=== PATIENT | female | born 1935 | race Caucasian/White ===

== ENCOUNTER 2022-08-26 10:52 | Emergency (ER) | payer MEDICARE, SELFPAY ==
[2022-08-26] VITALS (66 sets, daily range): BP systolic 108–204; BP diastolic 63–143; PULSE 97–126; RESP 21–35; TEMP 36.4; O2SAT 87–99
--- NOTE | ~2022-08-26 | CT_ITS ---
EXAMINATION: CTA chest PE protocol DATE: 08/26/2022 12:56 INDICATION: Shortness of breath. TECHNIQUE: Computed tomography angiography (CTA) of the chest was performed with 100 mL Omnipaque-350 intravenous contrast timed to evaluate the pulmonary arteries. Coronal maximum intensity projection 3D-reconstructions were created by the technologist. Automated exposure control and iterative reconst ruction technique were employed. The dose-length product was 477.72 mGy-cm. COMPARISON: None. 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 There is mild bronchiectasis in the inferior lungs with bilateral mucous plugging. There is mild atelectasis bilaterally. No pleural effusion. The heart size is normal. No p ericardial effusion. There is no pulmonary embolus. The thyroid is severely enlarged and extends into the mediastinum. There is a small sliding hiatal hernia. There is moderate thoracic spondylosis. IMPRESSION: 1. No pulmonary embolus. Sensitivity is mildly decreased by motion artifact. 2. Mild bronchiectasis in the inferior lungs with bilateral mucous plugging. 3. Severely enlarged thyroid, which extends into the mediastinum. 4. Small sliding hiatal hernia. Reviewed, dictated and finalized at location A.
--- NOTE | 2022-08-26 11:04 | ED.URI ---
HPI - URI/Sore Throat General Stated Complaint: breathing problems Time Seen by Provider: 08/26/22 11:04 Related Data Allergies Allergy/AdvReac Type Severity Reaction Status Date / Time Penicillins AdvReac Rash Verified 08/21/22 07:42 [facility] Past Medical History Medical History Hypertension Surgical History Surgical History No history of previous surgery Social History Social History Smoking status: Current every day smoker Lack of Transportation: YES Lack of Food: Never True Current Housing: I Have Housing Concerned About Future Housing: No Difficulty Paying Gas/Electric Bills: No Difficulty Paying for Meds: No Currently Unemployed: No Education: Decline to Answer Difficulty w/ Childcare or Family Care: No Course Vital Signs Vital signs: Vital Signs Temperature 36.4 C L 08/26/22 10:52 Pulse Rate 115 H 08/26/22 10:52 Respiratory Rate 35 H 08/26/22 10:52 Blood Pressure 186/87 H 08/26/22 10:52 Pulse Oximetry 94 08/26/22 10:52 Oxygen Delivery Room Air 08/26/22 10:52 Temperature 36.4 C L 08/26/22 10:52 Pulse Rate 115 H 08/26/22 10:52 Respiratory Rate 35 H 08/26/22 10:52 Blood Pressure 186/87 H 08/26/22 10:52 Pulse Oximetry 94 08/26/22 10:52 Oxygen Delivery Room Air 08/26/22 10:52 Discharge Plan Discharge Prescriptions: No Action (DME) Flexichamber Spacer See Rx Instructions .Route Qty: 1 0RF Rx Instructions: As directed fluticasone propion-salmeterol [Advair Diskus] 100-50 mcg/dose blister with device 1 inh inhalation Q12H Qty: 60 0RF benazepril 20 mg tablet 20 mg PO DAILY Qty: 90 0RF furosemide 20 mg tablet 20 mg PO QAM Qty: 90 0RF albuterol sulfate 90 mcg/actuation HFA aerosol inhaler 1 inh inhalation Q4H PRN (Reason: shortness of breath or wheezing) Qty: 8.5 0RF Follow-up/Referrals: Watson Ornelas, [Primary Care Provider] -
--- NOTE | 2022-08-26 11:20 | ECG_ITS ---
Measurements Intervals [place] Rate: 115 P: 77 KS: 160 QRS: 22 QRSD: 90 T: 31 QT: 325 QTc: 451 Interpretive Statements SINUS TACHYCARDIA VENTRICULAR PREMATURE COMPLEXES AND FREQUENT ATRIAL PREMATURE COMPLEXES BASELINE ARTIFACT- II, III, AVF, V4-V6 ABNORMAL ECG NO PREVIOUS ECG AVAILABLE FOR COMPARISON Electronically Signed On 08-26-2022 12:09:40 CDT by Haseeb Yanez D.O.
--- NOTE | 2022-08-26 11:24 | ED.SOB ---
HPI - SOB/Dyspnea General Chief Complaint: Shortness of Breath/Dyspnea Stated Complaint: breathing problems Time Seen by Provider: 08/26/22 11:04 Source: patient Mode of arrival: ambulatory Limitations: no limitations History of Present Illness HPI Narrative: 86-year-old female with COPD( nonsmoker, possibly secondary to secondhand smoke from her ex and children), hypertension presents to the ER with -- worsening shortness of breath for many months which has gotten worse over the past few days. The patient is unable to lay flat. Continuous bilateral wheezing. 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 The mass pushes the trachea anteriorly on the lateral view. MD elicited complaint: shortness of breath and cough Pertinent past history: COPD Onset (ago): day(s) Timing: constant Severity: severe Exacerbating factors: lying flat Relieving factors: nothing Known history of: COPD Associated symptoms: denies other symptoms and orthopnea Treatment prior to arrival: bronchodilator Related Data Home oxygen amount: none Allergies Allergy/AdvReac Type Severity Reaction Status Date / Time Penicillins AdvReac Rash Verified 08/21/22 07:42 Review of Systems Review of Systems: All systems reviewed & are unremarkable except as noted in HPI and below Constitutional: Constitutional: Reports as per HPI and Reports no additional constitutional complaints Eyes: Eyes: Reports as per HPI and Reports no additional eye complaints ENT: Reports system reviewed and no additional complaints, except as documented and Reports as per HPI Cardiovascular: Cardiovascular: Reports as per HPI and Reports no additional cardiovascular complaints Respiratory: Respiratory: Reports as per HPI, Reports no additional respiratory complaints, Reports cough, Reports dyspnea and Reports wheezing Gastrointestinal: Gastrointestinal: Reports as per HPI and Reports no additional gastrointestinal complaints Genitourinary: Genitourinary: Reports no additional female genitourinary complaints and Reports as per HPI Musculoskeletal: Musculoskeletal: Reports no additional musculoskeletal complaints and Reports as per HPI Integumentary/Breasts: Skin/Breast: Reports system reviewed and no additional complaints, except as docu and Reports as per HPI Neurologic: Reports system reviewed and no additional complaints, except as documented and Reports as per HPI Psychiatric: Psychiatric: Reports no additional psychiatric complaints and Reports as per HPI Endocrine: Endocrine: Reports no additional endocrine complaints and Reports as per HPI Hematologic/Lymphatic: Hematologic/Lymphatic: Reports no additional hematologic/lymphatic complaints and Reports as per HPI Allergic/Immunologic: Allergic/Immunologic: Reports no additional allergic/immunologic complaints and Reports as per HPI [facility] Past Medical History Medical History COPD (chronic obstructive pulmonary disease) Hypertension Surgical History Surgical History No history of previous surgery Social History Social History Lack of Transportation: YES Lack of Food: Never True Current Housing: I Have Housing Concerned About Future Housing: No Difficulty Paying Gas/Electric Bills: No Difficulty Paying for Meds: No Currently Unemployed: No Education: Decline to Answer Difficulty w/ Childcare or Family Care: No Exam Const: General: ill appearing Orientation/consciousness: patient oriented x3 Limitations: no limitations HENMT: Head: normal to inspection Ears: external ears normal Face/Nose/Sinus: Normal external nose present Face and sinus: normal facial exam Mouth: Yes Normal o
[2022-08-26 11:42] LABS: Basophils Absolute Auto 0.04 K/mm3 (0.00-0.10); Basophils Percent Auto 0.6 % (0.0-1.0); Eosinophils Absolute Auto 0.26 K/mm3 (0.02-0.50); Eosinophils Percent Auto 3.8 % (1.0-6.0); Hematocrit 39.4 % (35.0-42.0); Hemoglobin 12.7 g/dL (11.7-13.8); Immature Granulocyte Absolute 0.01 K/mm3 (0.00-0.00); Immature Granulocyte Percent A 0.1 % (0.0-0.0); Lymphocytes Absolute Auto 1.15 K/mm3 (1.10-4.50); Lymphocytes Percent Auto 16.7 % (18.0-42.0); Mean Corpuscular HGB Conc 32.2 g/dL (32.0-36.0); Mean Corpuscular Hemoglobin 27.7 pg (27.0-31.0); Mean Corpuscular Volume 85.8 fL (78.0-102.0); Mean Platelet Volume 10.1 fl (9.2-11.8); Monocytes Absolute Auto 0.56 K/mm3 (0.10-0.90); Monocytes Percent Auto 8.1 % (2.0-11.0); Neutrophils Absolute Auto 4.9 K/mm3 (1.7-7.2); Neutrophils Percent Auto 70.7 % (50.0-70.0); Platelet Count Result 208 K/mm3 (150-420); Red Blood Count 4.59 M/mm3 (4.20-5.40); Red Cell Distribution Width 14.1 % (11.6-14.4); White Blood Count 6.9 K/mm3 (4.8-10.8)
[2022-08-26 11:43] LABS: Base Excess ABG -3.9 mmol/L (0-2); HCO3 ABG 20.8 mmol/L (23-29); Oxygen Content ABG 17.5 %vol (16.0-22.0); Oxygen Saturation ABG 92.6 % (95-97); Oxyhemoglobin 91.8 % (94-100); PCO2 ABG 36.5 mmHg (35-45); PO2 ABG 61.9 mmHg (75-85); Total Hemoglobin 13.6 g/dL (12.0-18.0); pH ABG 7.37 (7.35-7.45)
[2022-08-26 11:44] LABS: Device ROOM AIR; Modified Allen's Test Pass; Site Drawn RIGHT RADIAL
[2022-08-26 11:58] LABS: Partial Thromboplastin Time 28.7 SEC (23.90-30.70); Prothrombin Time 10.5 Seconds (9.50-12.10)
[2022-08-26 12:00] LABS: D Dimer 0.79 mg/L (0.19-0.50)
[2022-08-26 12:08] LABS: Alanine Aminotransferase 24 U/L (14-59); Albumin Level 3.6 g/dL (3.4-5.0); Alkaline Phosphatase 142 U/L (46-116); Anion Gap 10 mmol/L (8-16); Aspartate Amino Transferase 17 U/L (15-37); Bilirubin,Total 0.4 mg/dL (0.00-1.00); Blood Urea Nitrogen 22 mg/dL (7-18); Calcium 8.9 mg/dL (8.5-10.1); Carbon Dioxide 25 mmol/L (21-32); Chloride 104 mmol/L (98-108); Estimated CRCL calculation 30 ml/min; Estimated Glomerular Filt Rate 46; Glucose 189 mg/dL (70-99); NT Pro B Type Natriuretic Pept 97 pg/mL (0-450); Osmolality Calculated 296 mOsm/kg (285-295); Potassium 3.6 mmol/L (3.5-5.1); Sodium 139 mmol/L (136-145); Total Protein 7.6 g/dL (6.4-8.2)
[2022-08-26 12:09] LABS: Troponin I 9.2 ng/L (0.00-60.4)
[2022-08-26 12:10] LABS: Lactic Acid Reflex 1.5 mmol/L (0.4-2.0)
[2022-08-26 12:12] LABS: Influenza A QL RT-PCR Negative (Negative); Influenza B QL RT-PCR Negative (Negative); SARS-CoV-2 RNA PCR Negative (Negative)
[2022-08-26 12:13] LABS: RSV RNA, RT-PCR Negative (Negative)
--- NOTE | 2022-08-26 12:22 | PC.NURSE ---
PT REQUESTS WATER, ERP DECLINED AT THIS TIME. PT IS TO HAVE CT. PT IS RESTLESS I AM GONNA . FAN PROVIDED. PT REPORTS THE FAN HELPS. PT IS AWAITING CT AT THIS TIME. WILL CONTINUE TO MONITOR. AT BEDSIDE.
[2022-08-26] MEDS: LACTATED RINGERS 500 ML 999 ML IV CONT (12:29)
--- NOTE | 2022-08-26 12:33 | PC.NURSE ---
PT IS BECOMING AGITATED, RESTLESS. OXYGEN APPLIED AT 2L PER NC ORDERED PER DR GIORDANO. IVF INFUSING ORDERED WITHOUT DIFFICULTY. WILL CONTINUE TO MONITOR.
--- NOTE | 2022-08-26 13:44 | PC.NURSE ---
RADIOLOGY HAS PUSHED FILMS TO [facility].
--- NOTE | 2022-08-26 14:13 | PC.NURSE ---
PT ASSISTED TO BEDSIDE COMMODE. PT DESAT'S TO 88% ON RA. PT INCREASED SOB WITH EXERTION NOTED. PT REMOVED FROM O2 PER ERP. AWAITING RETURN CALL FROM [facility] ACCESS LINE AT THIS TIME. WILL CONTINUE TO MONITOR.
--- NOTE | 2022-08-26 15:11 | PC.NURSE ---
PT IS SITTING UP IN RECLINER FOR COMFORT AT THIS TIME. PT IS AWAITING RETURN CALL FROM [facility]. PT DENIES ANY NEEDS OR COMPLAINTS. WILL CONTINUE TO MONITOR.
--- NOTE | 2022-08-26 16:07 | PC.NURSE ---
HAS RETURNED TO EXAM ROOM. PT IS AWAITING ACCEPTANCE AT A FACILITY FOR TRANSFER AT THIS TIME. DECLINES TRANSFER TO [facility]. ANOTHER CALL PLACED TO [facility] ACCESS LINE, AND CALL PLACED TO [facility] ACCESS LINE. NO CHANGE IN PT STATUS. WILL CONTINUE TO MONITOR.
--- NOTE | 2022-08-26 16:52 | PC.NURSE ---
PT UPDATED, LIQUID DIET ORDERED AT THIS TIME PER ERP. PT AND ARE AWARE OF PLAN OF CARE. PT IS NOW AWAITING RETURN CALL FROM [facility]. ERP REPORTS PT HAS STRIDOR NOTED. WILL CONTINUE TO MONITOR.
--- NOTE | 2022-08-26 17:44 | PC.NURSE ---
PT IS NOW AWAITING ERP TO SPEAK WITH RADIOLOGIST TO CONFIRM FINDINGS.
--- NOTE | 2022-08-26 17:59 | PC.NURSE ---
PT ATE JELLO CUP AND IS HAVING A POPSICLE AT THIS TIME. NO CHANGE IN STATUS. PT IS AWAITING DECISION. ERP IS SPEAKING WITH [facility] LINE AT THIS TIME. TO AWAIT DECISION. WILL CONTINUE TO MONITOR.
--- NOTE | 2022-08-26 18:06 | PC.NURSE ---
PT IS TO BE TRANSFERRED TO [facility] ER. [facility] PAG[facility] FOR TRANSFER. PT AND FAMILY ARE AWARE OF PLAN OF CARE.
--- NOTE | 2022-08-26 18:21 | PC.NURSE ---
PT IS TALKING WITH FAMILY, SHORT SENTENCES, HOWEVER SHE BECOMES SOB EASILY. DAUGHTER AND SON HAVE ARRIVED AT BEDSIDE. DAUGHTER ANNE GRIMES, HAS TAKEN ALL PT JEWELRY HOME WITH HER EXCEPT 1 GOLD TONED BAND ON LEFT RING FINGER. BELONGINGS LIST WAS UPDATED. NO CHANGE IN PT STATUS AT THIS TIME, PT IS AWAITING EMS ARRIVAL FOR TRANSPORT. WILL CONTINUE TO MONITOR.
== END 2022-08-26 18:45 | disposition short-term general hospital (02) ==
PROVIDERS: Emergency Provider Internal Medicine Critical Care Medicine; PCP Family Medicine
DX: E04.9 Nontoxic goiter, unspecified (principal); R06.02 Shortness of breath; I10 Essential (primary) hypertension; J44.9 Chronic obstructive pulmonary disease, unspecified; Z79.51 Long term (current) use of inhaled steroids; Z20.822 Contact with and (suspected) exposure to COVID-19
CPT/HCPCS: 36415; 36600; 71275; 80053; 82805; 83605; 83880; 84484; 85025; 85380; 85610; 85730; 87637; 93005; 96360; 99285; J7120; Q9967

== ENCOUNTER 2023-06-29 12:40 | Outpatient (NON) | payer MEDICARE, SELFPAY ==
[2023-06-29 12:50] LABS: Appearance Urine Clear (Clear); Bilirubin Urine Negative (Negative); Blood Urine Negative (Negative); Color Urine Light Yellow (Yellow); Glucose Urine UA Negative (Negative); Ketones Urine Negative (Negative); Leukocyte Esterase Ur 1+ (Negative); Nitrate Urine Negative (Negative); Protein Urine Negative (Negative); Specific Grav Ur 1.015 (1.010-1.020); Urobilinogen Urine 0.2 mg/dL (0.2-1.0)
[2023-06-29 12:58] LABS: Add Urine Microscopic? YES; Bacteria Urine 1+ /hpf; RBC Urine None seen /hpf (0-2); Squamous Epithelial Cell Urine Few /hpf (Few)
== END 2023-06-29 12:41 | disposition home or self-care (01) ==
LOC: CHSLAB 12:43
PROVIDERS: Visit Provider Nurse Practitioner Family
DX: R39.9 Unspecified symptoms and signs involving the genitourinary system (principal)
CPT/HCPCS: 81001; 87077; 87086; 87088; 87186

== ENCOUNTER 2024-06-26 10:36 | Emergency (ER) | payer MEDICARE, SELFPAY ==
--- NOTE | ~2024-06-26 | XR_ITS ---
EXAMINATION: XR shoulder RT min 2V, XR humerus RT, XR forearm RT 2V DATE: 06/26/2024 11:00 INDICATION: Right shoulder pain post fall 2 weeks prior TECHNIQUE: 1. AP internally and externally rotated, AP oblique externally rotated and transscapular Y views of t he right shoulder were obtained. 2. AP and lateral views of the right humerus were obtained. 2. AP and lateral views of the right forearm were obtained. COMPARISON: None FINDINGS: Normal alignment. No fracture. Polyarticular osteoarthritis, moderate severity at the right acromioc lavicular joint and mild at the right elbow and glenohumeral joints. There is additional mild to mode rate polyarticular osteoarthritis at the visualized portion of the right hand. Metallic bracelet obsc ures portions of the distal right radius and ulna. Soft tissues and visualized right upper extremity are unremarkable. A large calcified granuloma in the right upper lung zone. There is chronic widening of the superior mediastinum which on prior CT dated 08/26/2022 appears to result from intrathoracic e xtension of a severely enlarged thyroid. 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 No acute osseous abnor mality. 2. Chronic widening of the superior mediastinum which on CT dated 08/26/2022 appears to result from in trathoracic extension of a severely enlarged thyroid. Reviewed, dictated and finalized at location B. 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 No acute osseous abnormality. 2. 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 No acute osseous abnormality. 2. 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
[2024-06-26 10:41] VITALS: BP 116/99; PULSE 97; RESP 18; TEMP 36.4; O2SAT 97
--- NOTE | 2024-06-26 10:43 | ED.EXTPRO ---
HPI - Extremity Problem General Chief complaint: Extremity Injury, Upper Stated complaint: shoulder pain Time Seen by Provider: 06/26/24 10:38 Source: patient Mode of arrival: ambulatory Limitations: no limitations History of Present Illness HPI Narrative: Patient is 88-year-old female with significant past medical history that presents today with right shoulder and arm pain. Patient is walking dogs and she was pulled by the dog and fell on her right side. She hurt her right shoulder mostly and says that she also has pain wearing radiating down the right arm to the forearm. She is taking Aleve and had some relief with that. Complaint: extremity pain Onset (ago): week(s) (2) Pain Consistency: intermittent Location: right Severity scale (1-10): 3 Quality: aching Radiation: distal Relieving factors: nothing Exacerbating factors: nothing Associated symptoms: denies other symptoms Related Data Allergies Allergy/AdvReac Type Severity Reaction Status Date / Time Penicillins AdvReac Rash Verified 06/26/24 10:44 Review of Systems Review of Systems: All systems reviewed & are unremarkable except as noted in HPI and below Constitutional: Constitutional: Reports as per HPI Eyes: Eyes: Reports no additional eye complaints ENT: Reports system reviewed and no additional complaints, except as documented Cardiovascular: Cardiovascular: Reports no additional cardiovascular complaints Respiratory: Respiratory: Reports no additional respiratory complaints Gastrointestinal: Gastrointestinal: Reports no additional gastrointestinal complaints Musculoskeletal: Musculoskeletal: Reports as per HPI and Reports arthralgias Integumentary/Breasts: Skin/Breast: Reports system reviewed and no additional complaints, except as docu Neurologic: Reports system reviewed and no additional complaints, except as documented Psychiatric: Psychiatric: Reports no additional psychiatric complaints Endocrine: Endocrine: Reports no additional endocrine complaints Hematologic/Lymphatic: Hematologic/Lymphatic: Reports no additional hematologic/lymphatic complaints Allergic/Immunologic: Allergic/Immunologic: Reports no additional allergic/immunologic complaints PMFSH Past Medical History Medical History Knee pain COPD (chronic obstructive pulmonary disease) Hypertension Surgical History Surgical History No history of previous surgery Social History Social History Smoking status: Never smoker Lack of Transportation: YES Lack of Food: Never True Current Housing: I Have Housing Concerned About Future Housing: No Difficulty Paying Gas/Electric Bills: No Difficulty Paying for Meds: No Currently Unemployed: No Education: Decline to Answer Difficulty w/ Childcare or Family Care: No Exam Const: General: healthy appearing Nutritional Appearance: well nourished Orientation/consciousness: patient oriented x3 Limitations: no limitations HENMT: Head: normal to inspection Ears: external ears normal Face/Nose/Sinus: Normal external nose present Face and sinus: normal facial exam Mouth: Yes Normal oral and palatal mucosa present Eyes: Conjunctivae: conjunctivae normal Pupils: Equal, round and reactive pupils present EOM: EOMs intact bilaterally Direct Ophthalmoscopy: no photophobia Neck: Neck: normal visual inspection Chest: Chest palpation & inspection: normal inspection of the chest Resp: Effort & Inspection: normal respiratory effort Auscultation: clear to auscultation bilaterally Cardio: Rate: regular rate Rhythm: regular rhythm Heart sounds: Murmur heart sound present GI: GI Palp: Yes Soft to palpation Auscultation: normal bowel sounds Back/Spine/Pelvis: Back: no CVA tenderness Skin: General skin exam: normal color Rashes: no rashes Wounds: no wounds Neuro: General: patient oriented x3 Cranial nerves: Yes Nystagmus not present Speech: normal speech Extrem: General: normal to inspection Psych: Mental Status: mental status grossly normal Affect: normal affect Course Vital Signs Vital signs: Vital Signs Temperature 97.6 F 06/26/24 10:41 Pulse Rate 97 06/26/24 10:41 Respiratory Rate 18 06/26/24 10:41 Blood Pressure 116/99 H 06/26/24 10:41 Pulse Oximetry 97 06/26/24 10:41 Oxygen Delivery Room Air 06/26/24 10:41 Temperature 97.6 F 06/26/24 10:41 Pulse Rate 97 06/26/24 10:41 Respiratory Rate 18 06/26/24 10:41 Blood Pressure 116/99 H 06/26/24 10:41 Pulse Oximetry 97 06/26/24 10:41 Oxygen Delivery Room Air 06/26/24 10:41 MDM - Extremity (Nontraumatic) MDM Narrative Medical decision making narrative: Patient most likely just has a small ligament tear in her right shoulder that is radiating pain down the right arm. I do not think there is any fractures or dislocations. But will do an x-ray of the right shoulder and right humerus and right forearm. Explained to her if nothing shows up on the x-ray with the few weeks if she still is having the pain then to get an MRI from her PCP. Differential Diagnosis Differential diagnosis: Likely other ( Ligament sprain) Medical Records Attestation: I reviewed the patient's medical records. Discharge Plan Discharge Clinical Impression: Osteoarthritis of AC (acromioclavicular) joint, Injury of right shoulder Patient Disposition: Home, Self-Care Condition: Stable Instructions: Osteoarthritis (ED) Additional Instructions: if still having bad pain with reaching overhead and range of motion in the rotator cuff area then follow-up with primary care physician for possible further imaging of an MRI. Patient Language: Kinyarwanda Prescriptions: No Action (DME) Flexichamber Spacer See Rx Instructions .Route Qty: 1 0RF Rx Instructions: As directed benazepril 20 mg tablet 20 mg PO DAILY Qty: 90 3RF Follow-up/Referrals: Watson Ornelas DO [Primary Care Provider] - Time of Disposition: 11:44
[2024-06-26 11:46] VITALS: BP 160/71; PULSE 85; RESP 20; TEMP 36.7; O2SAT 96
--- OUTSIDE RECORDS SUMMARY | 2024-06-26 12:24 | XMS_ITS | Clinical Summary ---
Author Organization [facility] Facility Address [address] [place] [id number] Care Team Providers Care Negative Notcher Name Role Phone Unavailable Primary Care Provider Unavailabl e Family History Medical History Relation Comments Heart disease Father Relation Status Comments Father Mother Social History Tobacco Use Types Packs/Day Years Used Date Smoking Tobacco: Never Alcohol Use Standard Drinks/Week Comments No 0 (1 standard drink = 0.6 oz pur e alcohol) Comments Unknown Sex and Gender Information Value Date Recorded Sex Assigned at Not on file Legal Sex Female 6:01 PM EDT Gender Identity Not on file Sexual Orientation Not on file Last Filed Vital Signs Vital Sign Reading Time Taken Comments Blood Pressure 122/68 08/05/2018 9:00 AM [facility] Pulse 83 08/05/2018 9:00 AM [facility] Temperature 36.9 C (98.4 F) 08/05/2018 9:00 AM MST Respiratory Rate - - Oxygen Saturation - - Inhaled Oxygen Concentration - - Weight 79.4 kg (175 lb 0.7 oz) 08/05/2018 9:00 A M MST Height 160 cm (5' 3 ) 08/05/2018 9:00 AM MST Body Mass Index 31.01 08/05/2018 9:00 AM MST Plan of Treatment Health Maintenance Due Date Last Done Comments Pneumococcal Vaccine: 65+ Ye ars (1 of 2 - PCV) 1940 Influenza Vaccine (#1) 2023 01/11/2018 Hepatitis B Vaccine Aged Out No longe r eligible based on patient's age to complete this topic
--- OUTSIDE RECORDS SUMMARY | 2024-06-26 12:24 | XMS_ITS | Continuity of Care Document ---
Author Organization [facility] ter Address [address] [place] [address] Phone Care Team Providers Care Dining Room Server Name Role Phone Julio COURTNEY, Vivek Unavailable Unavailable Allergies, Adverse Reactions, Alerts Substance Reaction Status Criticality Penicillins Active No Information Medications Medication Instructions Dosage Effective Dates (start - stop) Status Comments No Drug Therapy Prescribed Procedures Procedure Date New Pt Complete Advance Directives Directive Yes / No Effective Date File Name No Information Encounters Encounter Description Practice Location Reason(s) For Visit Diagnoses Date Provider Providers Copied on Encounter [facility], [address] [place], [id number], tel:[phone] High IOP (chief complaint) Presence of intraocular lensDry eye syndrome of bilateral lacrimal glandsVitreous degeneration, bilateral 9 Julio Doyle. [address] [place], [place], [id number], [place]. tel:[phone] Referring Provider: Vivek Kim [address] [place], [address] . tel:[phone] [facility], [address] [place], [id number], tel:[phone] Tear film insufficiency, unspecifiedVit reous degeneration No Information Family History Family Member Type Diagnosis Age At Onset No Information Payers Payer name Insurance type Covered constitution party ID Authoriza tion(s) [place] [id number] [facility] [id number] Social History Type Description Quantity Date Captured Comments Alcohol Use Details No Caffeine Use Details coffee 2 cups per day Tobacco Use Status Current non-smoker 18 Smoking Status Never smoker Non-Smoking Tobacco Use Details : No Details Available : No Details Available Sex Female Chief Complaint And Reason For Visit From encounter dated '11/03/2018 15:40'. High IOP (chief complaint) Reason For Referral Reason For Referral No Information History Of Present Illness Encounter Date Complaint History Of Prese nt Illness High IOP Pt presents for high IOP.Pt states she was told by a at [employer] [employer] that she had high IOP.Pt states she was kind of worried.Pt states no changes in [facility] OU from last visit.Pt denies pain or discomfort, no flashes or floaters. Functional Status Date Functional Assessmen t No Information Medications Administered Medication Instructions Dosage Effective Dates (start - stop) Status Comments No Drug Therapy Prescribed Instructions Date Instruction Additional Infor mation Return in PRN Related to Prese nce of intraocular lens Return in PRN Related to Dry e ye syndrome of bilateral lacrimal glands Return in 1 year wit h Vivek Kim, OD for Complete Dilated Exam. Related to Vitreous degeneration, bilateral Impression/Plan - Di scussed diagnosis in detail with patient. There is no evidence of retinal pathology. No treatment is required at this time. Will continue to observe condition and or symptoms. Discussed signs and symptoms of PVD/floaters. Discussed signs and symptoms of retinal detachment/tears. Patient instructed to call the office immediately if any symptoms noted. Patient instructed to call if condition gets worse. Performed OCT as baseline *no charge Related to Vitreous degeneration, bilateral Impression/Plan - Di scussed diagnosis in detail with patient. No treatment is required at this time. Will continue to observe condition and or symptoms. Patient instructed to call if condition gets worse. Related to Presence of intraocular lens Follow up - Return in PRN Relate d to Dry eye syndrome of bilateral lacrimal glands Impression/Plan - Di scussed diagnosis with patient. Recommend artificial tears for comfort. 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 Related to Vitreous degeneration, bilateral Follow up - Return in PRN Relate d to Presence of intraocular lens Dry Eye Syndrome, OU - Dry Eyes accounts for the complaint. There is no evidence of permanent changes to cornea. Explained no cure, will need artificial tears for maintenance. (Pt given sample of Systane) - Return in 1 year(s ) for Dilated Exam, (S) Related to Vitreous Detachment - PRN Vitreous Detachment, OD - PVD accounts for pt's complaint. There is no evidence of retinal patholgy. All signs and risks of retinal detachment or tears were discussed in detail. If pt. notices any symptoms discussed, contact office [facility]. Recommend pt. return for normal recall. Related to Vitreous Detachment Assessments Type Assessment Date assessment Presence of intraocular lens Nov assessment Dry eye syndrome of bilateral la crimal glands assessment Vitreous degeneration, bilateral impression Dry eye syndrome of bilateral la crimal glands: H04.123 impression Vitreous degeneration, bilateral : H43.813 impression Presence of intraocular lens: Z9 6.1 Patient Care Teams Name Effective Dates (start - stop) Status Members No Information
--- OUTSIDE RECORDS SUMMARY | 2024-06-26 13:04 | XMS_ITS | Clinical Summary ---
Author Organization [facility] Facility Address [address] [place] [address] Care Team Providers Care Powerhouse Tender Name Role Phone Unavailable Primary Care Provider [...] Comments Blood Pressure 122/68 08/05/2018 9:00 AM [facility] Pulse 83 08/05/2018 9:00 AM [facility] Temperature 36.9 C (98.4 F) 08/05/2018 [...]
== END 2024-06-26 11:51 | disposition home or self-care (01) ==
PROVIDERS: Emergency Provider Family Medicine; PCP Family Medicine
DX: M19.011 Primary osteoarthritis, right shoulder (principal); J44.9 Chronic obstructive pulmonary disease, unspecified; I10 Essential (primary) hypertension
CPT/HCPCS: 73030; 73060; 73090; 99284

== ENCOUNTER 2024-08-17 10:56 | Outpatient (CLI) | payer MEDICARE, SELFPAY ==
--- OUTSIDE RECORDS SUMMARY | 2024-08-17 11:03 | XMS_ITS | Continuity of Care Document ---
Author Organization [facility] ter Address [address] [place] [address] Phone Care Team Providers Care Electronics Maintenance Technician Name Role Phone Julio COURTNEY, Vivek Unavailable [...] Diagnoses Date Provider Providers Copied on Encounter [facility], [address] [place], [id number], tel:[phone] [place] High IOP (chief complaint) Presence of intraocular lensDry eye syndrome of bilateral lacrimal glandsVitreous degeneration, bilateral 9 Julio Doyle. [address] [place], [place], [id number], [place]. tel:[phone] Referring Provider: Vivek Kim [address] [place], [address] . tel:[phone] [facility], [address] [place] [place], [id number], tel:[phone] [place] Tear film insufficiency, unspecifiedVit reous degeneration No Information Family History Family Member Type Diagnosis Age At Onset No Information Payers Payer name Insurance type Covered republican ID Authoriza tion(s) [place] [id number] [facility] [id number] Social History Type Description Quantity Date Captured [...] states she was told by a at [employer] that she had high IOP.Pt states she [...] of intraocular lens Follow up - Return i n 1 [...] *no charge Related to Vitreous degeneration, bilateral Follow up - Return in PRN Relate d to Presence of intraocular lens Impression/Plan - Di scussed diagnosis with patient. Recommend artificial tears for comfort. Related to Dry eye syndrome of bilateral lacrimal glands Follow up - Return in PRN Relate d to Dry eye syndrome of bilateral lacrimal glands Dry Eye Syndrome, OU - Dry Eyes [...]
--- OUTSIDE RECORDS SUMMARY | 2024-08-17 11:03 | XMS_ITS | Clinical Summary ---
Author Organization [facility] Facility Address [address] [place] [address] Care Team Providers Care Octave Board Racker Name Role Phone Unavailable Primary Care Provider [...] Comments Blood Pressure 122/68 08/05/2018 9:00 AM [facility] Pulse 83 08/05/2018 9:00 AM [facility] Temperature 36.9 C (98.4 F) [...] Due Date Last Done Comments Pneumococcal Vaccine: 50+ Ye ars (1 of 2 - PCV) 1954 Influenza Vaccine (Season Ended) 2024 01/12/20 18 Hepatitis B Vaccine Aged Out No longe r eligible based on patient's age to complete this topic
[2024-08-17 11:55] LABS: Thyroid Stimulating Hormone Reflex < 0.02 u/IU/mL (0.36-3.74)
[2024-08-17 12:23] LABS: Free T4 Free Thyroxine Reflex 1.61 ng/dL (0.78-2.19)
[2024-08-18 11:25] LABS: Free T3 4.27 pg/mL (2.18-3.98)
== END 2024-08-17 10:57 | disposition home or self-care (01) ==
LOC: CHSLAB 10:57
PROVIDERS: PCP Family Medicine; Visit Provider Family Medicine
DX: E01.0 Iodine-deficiency related diffuse (endemic) goiter (principal)
CPT/HCPCS: 36415; 84439; 84443; 84480; 84481; 84482

== ENCOUNTER 2024-09-07 10:19 | Outpatient (CLI) | payer MEDICARE, SELFPAY ==
[2024-09-07 10:33] LABS: Hematocrit 39.3 % (35.0-42.0); Hemoglobin 12.5 g/dL (11.7-13.8); Mean Corpuscular HGB Conc 31.8 g/dL (32-36); Mean Corpuscular Hemoglobin 27.1 pg (27.0-31.0); Mean Corpuscular Volume 85.1 fL (78.0-102.0); Mean Platelet Volume 9.7 fl (9.2-11.8); Platelet Count Result 228 K/mm3 (150-420); Red Blood Count 4.62 M/mm3 (4.20-5.40); Red Cell Distribution Width 14.5 % (11.6-14.4); White Blood Count 6.1 K/mm3 (4.8-10.8)
[2024-09-07 10:57] LABS: Alanine Aminotransferase 16 U/L (6-35); Albumin Level 4.2 g/dL (3.5-5.1); Alkaline Phosphatase 114 U/L (38-126); Anion Gap 6 mmol/L (4-12); Aspartate Amino Transferase 24 U/L (14-36); Bilirubin,Total 0.6 mg/dL (0.2-1.3); Blood Urea Nitrogen 19 mg/dL (7-17); Calcium 8.6 mg/dL (8.4-10.2); Carbon Dioxide 27 mmol/L (22-30); Chloride 109 mmol/L (98-107); Estimated Glomerular Filt Rate 52; Glucose 126 mg/dL (65-110); Osmolality Calculated 298 mOsm/kg (285-295); Potassium 3.9 mmol/L (3.4-5.0); Sodium 142 mmol/L (137-145)
[2024-09-07 11:14] LABS: Free T4 Free Thyroxine 1.24 ng/dL (0.78-2.19)
--- OUTSIDE RECORDS SUMMARY | 2024-09-07 11:19 | XMS_ITS | Continuity of Care Document ---
Author Organization [facility] ter Address [address] [place] [address] Phone Care Team Providers Care Accounts Payable Coordinator Name Role Phone Julio COURTNEY, Vivek Unavailable [...] Diagnoses Date Provider Providers Copied on Encounter [facility]Note 3], [address] [place] [place], [id number], tel:[phone] [place] High IOP (chief complaint) Presence of intraocular lensDry eye syndrome of bilateral lacrimal glandsVitreous degeneration, bilateral 9 Julio Doyle. [address] [place], [place], [id number], [place]. tel:[phone] Referring Provider: Vivek Kim [address] [place], [address] . tel:[phone] [facility][Note 3], [address] [place] [place], [address], tel:[phone] [place] Tear film insufficiency, unspecifiedVit reous degeneration No Information Family History Family Member Type Diagnosis Age At Onset No Information Payers Payer name Insurance type Covered green party ID Authoriza tion(s) Medicare [place] [id number] [facility] [id number] Social History Type Description Quantity Date Captured [...] states she was told by a at [employer] that she had high IOP.Pt states she [...] Prese nce of intraocular lens Return in 1 year wit h Vivek Kim, OD for Complete Dilated Exam. Related to Vitreous degeneration, bilateral Return in PRN Related to Dry e ye syndrome of bilateral lacrimal glands Impression/Plan - Di scussed diagnosis in detail [...]
--- OUTSIDE RECORDS SUMMARY | 2024-09-07 11:19 | XMS_ITS | Patient Health Record ---
Author Organization [facility] Address [address] [place] [address] Care Team Providers Care Practice Business Asst Name Role Phone Yumi Wu Primary Care Provider Elizabeth Dickson M.D., Freddie Unavailable [phone] PASHAYELYNDON ELANA Unavailable Unavailable Allergies Allergen (clinical drug ingredient) Drug/Non Drug Allergy documented on EMR Reaction Allergy Type Onset Date Status penicillin Unknown Drug Allergy Active Reason For Referral No Information Medications Medication SIG (Take, Route, Frequency, Duration) Notes Start Date End Date Status Voltaren Topical 1% applied topically Active benazepril 40 mg orally Act bjorn hydrochlorothiazide-triamt erene 25 mg-37.5 mg orally Active Crestor 20 mg orally Active Cipro 500 mg 1 tablet orally 1 hr before the procedure Active oxyBUTYnin 5 mg 1/2 to 1 orally bid as needed. for 30 day(s) Active Valium 5 mg 1 tablet orally 1 ho ur before procedure Active Social History Tobacco Use: Social History Observation Description Date Details (start date - stop date) Never Smoker NA - NA IDDM, uncontrolled Question Answer Notes Are you a never smoker Alcohol Screen Question Answer Notes Did you have a drink containing alcohol in the p ast year? No Points 0 Interpretation Negative Problems Problem Type SNOMED Code ICD Code Onset Dates Problem Status W/U Status Risk Notes Problem Essential hypertensi on (27711696) Essential (primary) hypertension (I10) Active confirmed Problem Urinary incontinence (658713867) Unspecified urinary incontinence (R32) Active confirmed Problem Pure hypercholesterolemia (427148937) Pure hypercholester olemia, unspecified (E78.00) Active confirmed Plan Of Treatment Pending Test Test Name Order Date Urinalysis 07/01/2018 Urinalysis 03/23/2017 Insurance Providers Payer Name Payer Address Payer Phone Subscriber Number Group Number Insured Name Patient Relationship to Insured Coverage Start Date Coverage End Date MEDICARE [address] [id number] LUCY JACOME Self - patient is the insured [employer] [facility] [place] [address] [phone] [id number] PLAN F LUCY JACOME Self - patient is the insured Medical (General) History Medical History History ICD Code ASTHMA renal insff. Surgical History Surgery Date(Month/Year) hyst
--- OUTSIDE RECORDS SUMMARY | 2024-09-07 11:19 | XMS_ITS | Clinical Summary ---
Author Organization [facility] Facility Address [address] [place] [address] Care Team Providers Care Mix House Tender Name Role Phone Unavailable Primary Care [...] Comments Blood Pressure 122/68 08/05/2018 9:00 AM [facility] Pulse 83 08/05/2018 9:00 AM [facility] Temperature 36.9 C (98.4 F) 08/05/2018 9:00 AM MST Respiratory Rate - - Oxygen Saturation - - Inhaled Oxygen Concentration - - Weight 79.4 kg (175 lb 0.7 oz) 08/05/2018 9:00 A M [facility] Height 160 cm (5' 3) 08/05/2018 9:00 AM [facility] Body Mass Index [...]
[2024-09-07 11:28] LABS: Thyroid Stimulating Hormone < 0.015 uIU/mL (0.465-4.680)
[2024-09-09 01:45] LABS: Total Triiodothyronine (T3) 144 ng/dL (76-181)
[2024-09-12 19:48] LABS: Thyroid Stimulating Immunoglob <89 % baseline (<140)
[2024-09-12 22:09] LABS: Thyrotropin Receptor Antibody <1.00 IU/L (< OR = 2.00)
== END 2024-09-07 10:20 | disposition home or self-care (01) ==
LOC: CHSLAB 10:20
PROVIDERS: PCP Family Medicine; Visit Provider Internal Medicine Endocrinology, Diabetes & Metabolism
DX: R79.89 Other specified abnormal findings of blood chemistry (principal); E01.0 Iodine-deficiency related diffuse (endemic) goiter; I10 Essential (primary) hypertension
CPT/HCPCS: 36415; 80053; 83519; 84439; 84443; 84445; 84480; 85027

== ENCOUNTER 2024-09-11 12:25 | Outpatient (CLI) | payer MEDICARE, SELFPAY ==
--- NOTE | ~2024-09-11 | DEXA_ITS ---
Bone Density Report Name: LUCY JACOME Age: 88 Sex: Female Ethnicity: White Date of : 1935 Indication: hyperparathyroidism; height loss; asthma or emphysema; Referring Provider: SHELBY MISHRA Study: Bone densitometry was performed. Exam Date: September 11, 2024 Accession number: [id number] Bone Density: Region BMD T-score Z-score Classification AP Spine(L1-L4) 0.732 -2.9 0.0 Osteoporosis Femoral Neck (Left) 0.434 -3.7 -1.2 Osteoporosis Total Hip (Left) 0.652 -2.4 0.0 Osteopenia Femoral Neck (Right) 0.530 -2.9 -0.4 Osteoporosis Total Hip (Right) 0.593 -2.9 -0.5 Osteoporosis Femoral Neck Mean 0.482 -3.3 -0.8 Osteoporosis Total Hip Mean 0.623 -2.6 -0.3 Osteoporosis World Health Organization criteria for BMD impression classify patients as: Normal (T-score at or above -1.0), Osteopenia (T-score between -1.0 and -2.5), or Osteoporosis (T-score at or below -2.5). 10-year Fracture Risk: FRAX not reported because: Some T-score for Spine Total or Hip Total or Femoral Neck at or below -2.5 Clinical Information Provided by Patient: Has the following medical conditions: Asthma or Emphysema, Hyperparathyroidism Patient maximum height was 63 Menopause Age: 49 No regular weight bearing exercise Does not regularly consume dairy products Drinks caffeinated beverages Onset of menses at age 15 Number of children 3 Impression: The patient has osteoporosis, based on the Left Femoral Neck T-score. Discussion: INCREASED RISK OF FRACTURE. BONE DENSITY IS UNDESIRABLY LOW AT ONE OR MORE SKELETAL SITES, CONSISTENT WITH POSTMENOPAUSAL OSTEOPOROSIS. This patient's lowest T-score meets the World Health Organization's (WHO) criteria for osteoporosis at one or more sites (T-score -2.5 or below). In untreated patients, the risk of osteoporotic fracture increases approximately two-fold for each 1.0 SD decrease in T-score. Low bone density is not the only risk factor for fracture; also consider factors such as patient's age, frailty or poor health, risk of falling, risk of injury, previous osteoporotic fracture, family history of osteoporosis, cigarette smoking, low body weight, etc. Not everyone with low bone mineral density has osteoporosis; osteomalacia and other metabolic bone disorders should also be considered. Patients who have osteoporosis should be evaluated for specific diseases and conditions (secondary causes) that may cause or contribute to bone loss. The [place] Association [employer] Clinical Endocrinologists (AACE) and National Osteoporosis Foundation (NOF) recommend pharmacologic intervention for all postmenopausal women whose T-score is in this range. The patient should follow a healthful lifestyle (good nutrition with adequate calcium and vitamin D, and appropriate weight-bearing exercise). Follow-Up: Consider a repeat BMD and Vertebral Fracture Assessment (VFA) exam in 2 years or sooner if medically necessary, to reassess this patient's status. Reported by: CAIT on 09/11/2024 12:45:00 PM. Reviewed, dictated and finalized at location A.
--- OUTSIDE RECORDS SUMMARY | 2024-09-11 13:42 | XMS_ITS | Clinical Summary ---
Author Organization [facility] Facility Address [address] [place] [address] Care Team Providers Care Admissions Counselor Name Role Phone Unavailable Primary Care Provider [...] Comments Blood Pressure 122/68 08/05/2018 9:00 AM [facility] Pulse 83 08/05/2018 9:00 AM [facility] Temperature 36.9 C (98.4 F) [...]
--- OUTSIDE RECORDS SUMMARY | 2024-09-11 13:42 | XMS_ITS | Continuity of Care Document ---
Author Organization [facility] ter Address [address] [place] [address] Phone Care Team Providers Care Leather Tanner Name Role Phone Julio COURTNEY, Vivek Unavailable [...] Diagnoses Date Provider Providers Copied on Encounter [facility], [address] [place] [place], [id number], tel:[phone] [place] High IOP (chief complaint) Presence of intraocular lensDry eye syndrome of bilateral lacrimal glandsVitreous degeneration, bilateral 9 Julio Doyle. [address] [place], [place], [id number], [place]. tel:[phone] Referring Provider: Vivek Kim [address] [place], [address] . tel:[phone] [facility], [address] [place] [place], [address], tel:[phone] [place] Tear film insufficiency, unspecifiedVit reous degeneration No Information Family History Family Member Type Diagnosis Age At Onset No Information Payers Payer name Insurance type Covered alliance party ID Authoriza tion(s) Medicare [place] [id number] [facility] [id number] Social History Type Description Quantity Date Captured [...] states she was told by a at [employer] that she had high IOP.Pt states she [...]
== END 2024-09-11 12:26 | disposition home or self-care (01) ==
LOC: CHSIMG 12:26
PROVIDERS: PCP Family Medicine; Visit Provider Internal Medicine Endocrinology, Diabetes & Metabolism
DX: Z78.0 Asymptomatic menopausal state (principal); M85.89 Other specified disorders of bone density and structure, multiple sites; M81.0 Age-related osteoporosis without current pathological fracture
CPT/HCPCS: 77080